=== PATIENT | male | born 2000 | race Caucasian/White ===

== ENCOUNTER 2022-01-12 19:53 | Emergency (ER) | payer SELFPAY ==
[2022-01-12] MEDS ORDERED: Ondansetron 4 MG Tab.DIS PO ONE ×2 (19:54→21:23)
[2022-01-12 21:01] LABS: ANION GAP 10.9 mEq/L (7-13); CHLORIDE,CL 103 mmol/L (98-107); SODIUM,NA 139 mmol/L (136-145)
[2022-01-12 21:17] LABS: ESTIMATED GFR 95 mL/min (>=60)
[2022-01-12 21:23] LABS: AMPHETAMINES,URINE NEGATIVE (NEGATIVE); BARBITURATES,URINE NEGATIVE (NEGATIVE); BENZODIAZEPINE,URINE NEGATIVE (NEGATIVE); MDMA (ECSTASY), URINE NEGATIVE (NEGATIVE); METHADONE,URINE NEGATIVE (NEGATIVE); METHAMPHETAMINES,URINE NEGATIVE (NEGATIVE); OPIATES,URINE NEGATIVE (NEGATIVE); OXYCODONE,URINE NEGATIVE (NEGATIVE); PHENCYCLIDINE,URINE NEGATIVE (NEGATIVE); TCA,URINE NEGATIVE (NEGATIVE)
[2022-01-12] MEDS ORDERED: Acetaminophen 325 MG Tab PO ONE (21:23)
[2022-01-12] MEDS ORDERED: Ondansetron 4 MG Tab.DIS ONE (21:39)
== END 2022-01-12 22:08 | disposition home or self-care (01) ==
LOC: DL.ED 19:53
DX: S06.0X1A Concussion with loss of consciousness of 30 minutes or less, initial encounter (principal); S00.03XA Contusion of scalp, initial encounter; W22.09XA Striking against other stationary object, initial encounter; Y93.67 Activity, basketball
CPT/HCPCS: 36415; 70450; 72125; 80053; 80305-QW; 80307; 81003; 85025; 99284; 99284-25; A9270-GY